=== PATIENT | female | born 1995 ===

== ENCOUNTER 2017-09-15 17:37 | Emergency (ER) | payer OTHER ==
[2017-09-15] MEDS ORDERED: Sodium Chloride 0.9% 1,000 ML IV ONE (18:03)
[2017-09-15] MEDS ORDERED: Ondansetron 4 MG/2 ML SDV IVPUSH ONE (18:03)
[2017-09-15] MEDS ORDERED: Ketorolac 30 MG/ML SDV IVPUSH ONE (18:03)
--- NOTE | 2017-09-15 18:03 | EDM.PDOC ---
ED HPI GENERAL MEDICAL PROBLEM - General Chief Complaint: Back Pain or Injury Stated Complaint: ABDOMIN PAIN Time Seen by Provider: 09/15/17 17:57 Source of Information: Reports: Patient History Limitations: Reports: No Limitations - History of Present Illness INITIAL COMMENTS - FREE TEXT/NARRATIVE: HISTORY AND PHYSICAL: History of present illness: Patient is a 21-year-old female who presents to the emergency room with complaints of right flank pain that radiates to the right upper quadrant, this started this afternoon. She denies any dysuria or difficulty starting her stream. Denies noting any blood in her urine. States she just finished her menses and denies any chance of . States she has been dizzy over the past hour. Denies any nausea, vomiting, diarrhea. Review of systems: As per history of present illness and below otherwise all systems reviewed and negative. Past medical history: As per history of present illness and as reviewed below otherwise noncontributory. Surgical history: As per history of present illness and as reviewed below otherwise noncontributory. Social history: No reported history of drug or alcohol abuse. Family history: As per history of present illness and as reviewed below otherwise noncontributory. Physical exam: General: Nontoxic-appearing 21-year-old female. Alert and oriented. Appears mildly comfortable. HEENT: Atraumatic, normocephalic, pupils reactive, negative for conjunctival pallor or scleral icterus, mucous membranes moist, throat clear, neck supple, nontender, trachea midline. Lungs: Clear to auscultation, breath sounds equal bilaterally, chest nontender. Heart: S1S2, regular 80 and rhythm Abdomen: Soft, nondistended, right upper quadrant tenderness. Negative for masses or hepatosplenomegaly. Right sided costovertebral tenderness. Pelvis: Stable nontender. Genitourinary: Deferred. Rectal: Deferred. Extremities: Atraumatic, negative for cords or calf pain. Neurovascular unremarkable. Neuro: Awake, alert, oriented. Cranial nerves II through XII unremarkable. Cerebellum unremarkable. Motor and sensory unremarkable throughout. Exam nonfocal. Patient remains afebrile. UA shows: 75-100 RBCs, 0-4 WBCs, 1+ bacteria- a urine culture has been added. CBC, CMP are unremarkable. CT shows a 3 mm stone within the distal right ureter with associated right-sided hydro-ureter/hydronephrosis. 1947 - Currently our Urologist is unavailable. Dr. Shaffer, urologist in [facility], was consulted on this patient. Reports that this stone should pass, and does not need to see this patient at this time. She recommended charged to home with prescription for Flomax, Toradol, Lyons and Zofran. She states that if the patient is still having pain next week, she may call and set up an appointment at their clinic. She is agreeable to see her for further care at that time. This information was relayed to the patient. We did discuss signs and symptoms of an infection and what would prompt her to come back to the emergency room. We discussed the medications that will be prescribed to her, and how to use them , and possible side effects. She voices understanding and is agreeable to plan of care. Denies any further questions at this time. Diagnostics: CBC, CMP, UA, urine , CT abdomen and pelvis Therapeutics: IV fluid, Toradol, Zofran, morphine, flomax Impression: Flank pain Right calculus Plan: 1. You have a 3 mm stone in the right ureter. Please increase her fluids. Take her prescriptions as prescribed. Flomax 1 tab daily (1st dose has been given here). Zofran 4 mg ODT, 1 tab every 8 hours as needed for nausea. Toradol 10 mg , 1 tab every 6 hours as needed. This medication is an anti-inflammatory, so do not take additional NSAIDs such as ibuprofen or Aleve with this medication. He may want to take with food to prevent upset stomach. Lyons 5 mg 1 tab every 4-6 hours as needed. This medication is a narcotic so do not take it driving her needing to be functioning at work as it will cause drowsiness. 2. If symptoms should worsen or you have increased pain, develop a fever, difficulty urinating please return to the emergency room. 3. Currently do not have urology until September in [place]. The Urologist, in [facility] has agreed to see you next week if you continued to have discomfort. 4. Return to the ED as needed and as discussed. Definitive disposition and diagnosis as appropriate pending reevaluation and review of above. 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 (See Below) Other OB/BYN History: PCOS Musculoskeletal History: Reports: None Neurological History: Reports: None Psychiatric History: Reports: None Endocrine/Metabolic History: Reports: None Hematologic History: Reports: None Immunologic History: Reports: None Oncologic (Cancer) History: Reports: None Dermatologic History: Reports: None - Past Surgical History Head Surgeries/Procedures: Reports: None HEENT Surgical History: Reports: None Cardiovascular Surgical History: Reports: None Respiratory Surgical History: Reports: None GI Surgical History: Reports: Appendectomy, Cholecystectomy Female Surgical History: Reports: None Endocrine Surgical History: Reports: None Neurological Surgical History: Reports: None Musculoskeletal Surgical History: Reports: None Oncologic Surgical History: Reports: None Dermatological Surgical History: Reports: None Social & Family History - Family History Family Medical History: Noncontributory - Tobacco Use Smoking Status *Q: Never Smoker - Caffeine Use Caffeine Use: Reports: Soda - Recreational Drug Use Recreational Drug Use: No ED ROS GENERAL - Review of Systems Review Of Systems: ROS reveals no pertinent complaints other than HPI. ED EXAM,LOWER BACK PAIN/INJURY - Physical Exam Exam: See Below (See dictation) Course - Vital Signs Last Recorded V/S: Last Vital Signs Temp 97.7 F 09/15/17 19:12 Pulse 93 09/15/17 19:12 Resp 19 09/15/17 19:12 BP 121/84 09/15/17 19:12 Pulse Ox 95 09/15/17 19:12 - Orders/Labs/Meds Orders: Active Orders 24 hr Category Date Time Status Abdomen Pelvis w Cont [CT] Stat Exams 09/15/17 18:03 Taken CULTURE URINE [RM] Stat Lab 09/15/17 17:53 Received Labs: Laboratory Tests 09/15/17 09/15/17 09/15/17 Range/Units 17:53 17:53 18:20 WBC 8.32 (4.0-11.0) K/uL RBC 4.38 (4.30-5.90) M/uL Hgb 13.1 (12.0-16.0) g/dL Hct 38.1 (36.0-46.0) % MCV 87.0 (80.0-98.0) fL MCH 29.9 (27.0-32.0) pg MCHC 34.4 (31.0-37.0) g/dL RDW Std Deviation 39.4 (28.0-62.0) fl RDW Coeff of Edmundo 12 (11.0-15.0) % Plt Count 243 (150-400) K/uL MPV 10.80 (7.40-12.00) fL Neut % (Auto) 53.1 (48.0-80.0) % Lymph % (Auto) 40.3 H (16.0-40.0) % Yates % (Auto) 6.0 (0.0-15.0) % Eos % (Auto) 0.4 (0.0-7.0) % Baso % (Auto) 0.2 (0.0-1.5) % Neut # (Auto) 4.4 (1.4-5.7) K/uL Lymph # (Auto) 3.4 H (0.6-2.4) K/uL Yates # (Auto) 0.5 (0.0-0.8) K/uL Eos # (Auto) 0.0 (0.0-0.7) K/uL Baso # (Auto) 0.0 (0.0-0.1) K/uL Nucleated RBC % 0.0 /100WBC Nucleated RBCs # 0 K/uL Sodium (136-146) mmol/L Potassium (3.5-5.1) mmol/L Chloride (98-110) mmol/L Carbon Dioxide (21-31) mmol/L BUN (6.0-23.0) mg/dL Creatinine (0.6-1.5) mg/dL Est Cr Clr Drug Dosing mL/min Estimated GFR (MDRD) ml/min Glucose (60-110) mg/dL Calcium (8.8-10.8) mg/dL Total Bilirubin (0.1-1.5) mg/dL AST (5-40) IU/L ALT (8-54) IU/L Alkaline Phosphatase (40-150) Total Protein (6.0-8.0) g/dL Albumin (3.5-5.0) g/dL Globulin (2.0-3.5) g/dL Albumin/Globulin Ratio (1.3-2.8) Amylase (10-90) U/L Lipase (7-80) U/L Urine Color DARK YELLOW Urine Appearance SLT CLOUDY Urine pH 6.0 (5.0-8.0) Ur Specific Hollytree >= 1.030 (1.001-1.035) Urine Protein 100 (NEGATIVE) mg/dL Urine Glucose (UA) NEGATIVE (NEGATIVE) mg/dL Urine Ketones NEGATIVE (NEGATIVE) mg/dL Urine Occult Blood LARGE H (NEGATIVE) Urine Nitrite NEGATIVE (NEGATIVE) Urine Bilirubin SMALL H (NEGATIVE) Urine Ictotest NEGATIVE Urine Urobilinogen 0.2 (<2.0) EU/dL Ur Leukocyte Esterase TRACE (NEGATIVE) Urine RBC 75-100 H (0-2/HPF) Urine WBC 0-4 (0-5/HPF) Ur Epithelial Cells FEW (NONE-FEW) Urine Bacteria 1+ H (NEGATIVE) Urine HCG, Qual NEGATIVE (NEGATIVE) 09/15/17 09/15/17 Range/Units 18:20 19:05 WBC (4.0-11.0) K/uL RBC (4.30-5.90) M/uL Hgb (12.0-16.0) g/dL Hct (36.0-46.0) % MCV (80.0-98.0) fL MCH (27.0-32.0) pg MCHC (31.0-37.0) g/dL RDW Std Deviation (28.0-62.0) fl RDW Coeff of Edmundo (11.0-15.0) % Plt Count (150-400) K/uL MPV (7.40-12.00) fL Neut % (Auto) (48.0-80.0) % Lymph % (Auto) (16.0-40.0) % Yates % (Auto) (0.0-15.0) % Eos % (Auto) (0.0-7.0) % Baso % (Auto) (0.0-1.5) % Neut # (Auto) (1.4-5.7) K/uL Lymph # (Auto) (0.6-2.4) K/uL Yates # (Auto) (0.0-0.8) K/uL Eos # (Auto) (0.0-0.7) K/uL Baso # (Auto) (0.0-0.1) K/uL Nucleated RBC % /100WBC Nucleated RBCs # K/uL Sodium 135 L (136-146) mmol/L Potassium 4.0 (3.5-5.1) mmol/L Chloride 106 (98-110) mmol/L Carbon Dioxide 18 L (21-31) mmol/L BUN 10 (6.0-23.0) mg/dL Creatinine 0.7 (0.6-1.5) mg/dL Est Cr Clr Drug Dosing 89.78 mL/min Estimated GFR (MDRD) > 60.0 ml/min Glucose 101 (60-110) mg/dL Calcium 9.6 (8.8-10.8) mg/dL Total Bilirubin 0.5 (0.1-1.5) mg/dL AST 29 (5-40) IU/L ALT 36 (8-54) IU/L Alkaline Phosphatase 78 (40-150) Total Protein 7.7 (6.0-8.0) g/dL Albumin 4.2 (3.5-5.0) g/dL Globulin 3.5 (2.0-3.5) g/dL Albumin/Globulin Ratio 1.2 L (1.3-2.8) Amylase 64 (10-90) U/L Lipase 34 (7-80) U/L Urine Color Urine Appearance Urine pH (5.0-8.0) Ur Specific Hollytree (1.001-1.035) Urine Protein (NEGATIVE) mg/dL Urine Glucose (UA) (NEGATIVE) mg/dL Urine Ketones (NEGATIVE) mg/dL Urine Occult Blood (NEGATIVE) Urine Nitrite (NEGATIVE) Urine Bilirubin (NEGATIVE) Urine Ictotest Urine Urobilinogen (<2.0) EU/dL Ur Leukocyte Esterase (NEGATIVE) Urine RBC (0-2/HPF) Urine WBC (0-5/HPF) Ur Epithelial Cells (NONE-FEW) Urine Bacteria (NEGATIVE) Urine HCG, Qual (NEGATIVE) Meds: Medications Discontinued Medications Generic Name Dose Route Start Last Admin Trade Name Freq PRN Reason Stop Dose Admin Sodium Chloride 1,000 mls @ 999 mls/hr 09/15/17 18:03 09/15/17 18:24 Normal Saline IV 09/15/17 19:03 999 mls/hr STAT ONE Administration Iopamidol 100 ml 09/15/17 18:51 09/15/17 18:51 Isovue Multipack-370 (76%) IVPUSH 09/15/17 18:52 100 ml ONETIME STA Administration Ketorolac Tromethamine 30 mg 09/15/17 18:03 09/15/17 18:24 Toradol IVPUSH 09/15/17 18:04 30 mg ONETIME ONE Administration Morphine Sulfate 2 mg 09/15/17 18:33 09/15/17 18:50 Morphine IVPUSH 09/15/17 18:34 2 mg ONETIME ONE Administration Morphine Sulfate 2 mg 09/15/17 19:02 09/15/17 19:09 Morphine IVPUSH 09/15/17 19:03 2 mg ONETIME ONE Administration Ondansetron HCl 4 mg 09/15/17 18:03 09/15/17 18:24 Zofran IVPUSH 09/15/17 18:04 4 mg ONETIME ONE Administration Departure - Departure Time of Disposition: 20:03 Disposition: Home, Self-Care 01 Clinical Impression: Kidney stone on right side - Discharge Information Referrals: PCP,None [Primary Care Provider] - Forms: ED Department Discharge Additional Instructions: My general discharge The following information is given to patients seen in the emergency department who are being discharged to home. This information is to outline your options for follow-up care. We provide all patients seen in our emergency department with a follow-up referral. The need for follow-up, as well as the timing and circumstances, are variable depending upon the specifics of your emergency department visit. If you don't have a primary care physician on staff, we will provide you with a referral. We always advise you to contact your personal physician following an emergency department visit to inform them of the circumstance of the visit and for follow-up with them and/or the need for any referrals to a consulting specialist. The emergency department will also refer you to a specialist when appropriate. This referral assures that you have the opportunity for follow-up care with a specialist. All of these measure are taken in an effort to provide you with optimal care, which includes your follow-up. Under all circumstances we always encourage you to contact your private physician who remains a resource for coordinating your care. When calling for follow-up care, please make the office aware that this follow-up is from your recent emergency room visit. If for any reason you are refused follow-up, please contact the [facility] Emergency Department at and asked to speak to the emergency department charge nurse. [facility] [address] [place] [id number] [facility]: Urology Office Phone Number: [phone] Located at: [facility] [address] [place] [address] [place] [address] 1. You have a 3 mm stone in the right ureter. Take her prescriptions as prescribed. Flomax 1 tab daily (1st dose has been given here). Zofran 4 mg ODT, 1 tab every 8 hours as needed for nausea. Toradol 10 mg, 1 tab every 6 hours as needed. This medication is an anti-inflammatory, so do not take additional NSAIDs such as ibuprofen or Aleve with this medication. He may want to take with food to prevent upset stomach. Lyons 5 mg 1 tab every 4-6 hours as needed. This medication is a narcotic so do not take it driving her needing to be functioning at work as it will cause drowsiness. 2. If symptoms should worsen or you have increased pain, develop a fever, difficulty urinating please return to the emergency room. 3. Currently do not have urology until September in [place]. The Urologist, in [facility] has agreed to see you next week if you continued to have discomfort. 4. Return to the ED as needed and as discussed. - My Orders Last 24 Hours: My Active Orders 09/15/17 17:53 CULTURE URINE [RM] Stat 09/15/17 18:03 Abdomen Pelvis w Cont [CT] Stat - Assessment/Plan Last 24 Hours: My Active Orders 09/15/17 17:53 CULTURE URINE [RM] Stat 09/15/17 18:03 Abdomen Pelvis w Cont [CT] Stat
[2017-09-15] MEDS ORDERED: Iopamidol 755 Mg/ML 100 ML Bottle IV ONE (18:30)
[2017-09-15] MEDS ORDERED: Morphine 2 MG/ML Syringe IVPUSH ONE ×2 (18:33→19:02)
[2017-09-15 18:48] LABS: CHLORIDE,CL 106 mmol/L (98-110); SODIUM,NA 135 mmol/L (136-146)
[2017-09-15] MEDS ORDERED: Iopamidol 755 MG/ML 500 ML Multipack Bottle IVPUSH STA (18:51)
[2017-09-15] MEDS ORDERED: Tamsulosin 0.4 MG Cap.ER PO ONE (20:12)
--- NOTE | 2017-09-19 11:42 | CT ---
EXAM DATE: 09/15/17 PATIENT'S AGE: 21 Patient: MARICHUY HESTER Facility: [place], [place] Site . Site : 1995 Study: CT Abdomen/Pelvis [id number] 6:59:35 PM Ordering Physician: Doctor Martinez Final Report: INDICATION: right flank pain TECHNIQUE: CT abdomen and pelvis acquired with IV contrast. COMPARISON: None FINDINGS: Lower chest: Unremarkable. Liver: Focal fatty infiltration adjacent to the falciform ligament. Spleen: Unremarkable. Pancreas: Unremarkable. Gallbladder and bile ducts: Cholecystectomy. Kidneys: 3 mm calculus within the distal right ureter with associated right- sided hydroureter/hydronephrosis with delayed nephrogram. Adrenal glands: Unremarkable. GI tract: Unremarkable. Appendectomy. Vascular structures: Negative. No sign of aneurysm. Lymph nodes: Unremarkable. Miscellaneous: Unremarkable. No free air. Trace free fluid. . Pelvic Organs: Unremarkable. Bones: Unremarkable for age. IMPRESSION: 3 mm calculus within the distal right ureter with associated right-sided hydroureter/hydronephrosis with delayed nephrogram. Dictated by Gonzalez Rivera MD @ 09/15/2017 7:38:56 PM Dictated by: Gonzalez Rivera MD @ 09/15/2017 19:39:01 (Electronic Signature) Report Signed by Proxy. [facility]
== END 2017-09-15 20:35 | disposition home or self-care (01) ==
LOC: MW.ED 17:37
DX: N13.2 Hydronephrosis with renal and ureteral calculous obstruction (principal); Z79.84 Long term (current) use of oral hypoglycemic drugs
CPT/HCPCS: 36415; 74177; 80053; 81001; 81025; 82150; 83690; 85025; 87086; 96361; 96374; 96375; 99284; A9270; J1885; J2270; J2405; J7040; Q9967